=== PATIENT | male | born 1975 | race Caucasian/White ===

== ENCOUNTER 2019-06-03 06:52 | Day surgery (SDC) | payer BC ==
[~2019-06-03] VITALS: Ht 190.5 cm; Wt 113.4 kg
[2019-06-03 07:19] LABS: HEMATOCRIT 44.2 % (42.0-54.0); HEMOGLOBIN 14.8 g/dL (13.5-17.5); MCH 29.4 pg (26.0-34.0); MCHC 33.5 g/dL (31.0-37.0); MCV 87.7 fL (80.0-100.0); MEAN PLATELET VOLUME 10.1 fL (7.4-10.4); RBC 5.04 10x6/uL (4.20-6.10); RDW 12.8 % (11.5-14.5); WBC 5.3 10x3/uL (4.8-10.8)
[2019-06-03 07:33] LABS: CALC OSMOLALITY 282 mosm/kg (275-300); CALCIUM 9.5 mg/dL (8.5-10.1); CARBON DIOXIDE 29.8 mmol/L (21.0-32.0); CHLORIDE - SERUM 104 mmol/L (98-107); GLUCOSE 111 mg/dL (74-106); POTASSIUM - SERUM 4.4 mmol/L (3.5-5.1); SODIUM 140 mmol/L (136-145); UREA NITROGEN 21 mg/dL (7-18); eGFR NON AFRICAN AMERICAN 87 mL/min (90-120)
[2019-06-03 08:06] VITALS: BP 132/73; Ht 190.5 cm; Wt 113.4 kg
--- NOTE | 2019-06-03 13:25 | NUR ---
[address] JONAS. Gomez OWEN R.N.
--- NOTE | 2019-06-03 13:30 | NUR ---
1205 DRESSED, AWAKE & ALERT. GIVEN DISCHARGE INFORMATION INCLUDING: RX FOR TYLENOL #3, MED REC, RTC APPT., [facility] D/C INSTRUCTIONS, & POST VASECTOMY D/C INSTRUCTIONS. PT VOICED UNDERSTANDING. WAITING FOR TO MAILING MACHINE HELPER. Gomez OWEN R.N. 1215 TO PRIVATE CAR PER WHEELCHAIR BY VOLUNTEER. HOME WITH MRS. HURST. Gomez OWEN R.N.
--- NOTE | 2019-06-03 13:46 | OP ---
PATIENT NAME: CAMILA HURST MEDICAL RECORD: [id number] :77 [facility] DATE: SURGEON: PATRICIA JONAS MD DATE OF OPERATION: 06/03/2019 SURGEON: Patricia Jonas MD ANESTHESIA: TIVA by Jaime Matson CRNA. DIAGNOSIS: Male sterilization. PROCEDURE: Vasectomy. SPECIMENS: Right and left vas deferens. ESTIMATED BLOOD LOSS: None. CLINICAL HISTORY: This is a 43-year-old male, who wishes to have a vasectomy done. He has 3 children. He does not want to have any more children and his is in agreement. He is otherwise in good health. He has no allergies to medication. He was given ampicillin and sulbactam special education educational assistant to the OR. DESCRIPTION OF PROCEDURE: The patient was given IV sedation in supine position. He was then prepped and draped. The right vas deferens was palpated. Towel clips were placed proximally and distally to prevent migration of the vas deferens. We then made an incision in the scrotal skin about 1cm in length. The skin was infiltrated with 1% lidocaine with epinephrine prior to making the incision. The José Miguel clamps were used to dissect the vas out. The tunics were stripped from the vas. The proximal and distal ends of the vas were then clamped with hemostats. The intervening segment was cut out using Metzenbaum scissors. It was sent to pathology. The vasal ends were cauterized. The vasal ends were ligated using 2-0 Prolene. The ends were then put back into the hemiscrotum and the skin was closed using simple interrupted 3-0 Vicryl sutures. The identical procedure was performed on the left side. Fluffs and mesh panties were then applied. I will see the patient in followup in 2 weeks' time. TRANSINT:[id number] Voice Confirmation ID: [id number] DOCUMENT ID: [id number] PATRICIA JNOAS MD at 1346 CC: [id number] DICTATION DATE: 06/03/19 1107 COMMERCIAL TIRE SERVICE TECHNICIAN: 06/03/19 1309 [facility] 06/03/19 [place] [address]
== END 2019-06-03 12:15 | disposition home or self-care (01) ==
LOC: D.OPS 06:52 → D.PAN 11:45 → D.OPS 12:15
PROVIDERS: Anesthesiology; ATTEND Urology
DX: Z30.2 Encounter for sterilization (principal); I10 Essential (primary) hypertension

== ENCOUNTER → 2019-06-27 14:22 | Outpatient (CLI) | payer BC ==
[2019-06-03 08:06] VITALS: BMI 31.3
[~2019-06-27 14:22] MED LIST: CEPHADYN PO; LORCET PLUS TAB1 TAB PO; NORCO 10/325 TA1 TA1 PO; ZIAC 5/6.25 MG1 TAB PO
== END | disposition home or self-care (01) ==
LOC: D.LABREF 14:22
PROVIDERS: ATTEND Urology
DX: Z30.2 Encounter for sterilization (principal)